=== PATIENT | female | born 1990 | race Caucasian/White ===

== ENCOUNTER → 2024-11-19 | Outpatient (CLI) | payer MEDICAID, SELFPAY ==
--- NOTE | 2024-11-19 09:30 | XR_ITS ---
Examination: Pelvic ultrasound, transabdominal, complete Technique: Transabdominal ultrasound of the pelvis performed using grayscale imaging Date and time of exam: November 19, 2024 0949 hours INDICATIONS: Irregular heavy menses 3 months FINDINGS: Uterus 8.2 cm endometrial stripe 0.5 cm No uterine mass or intrauterine gestation Right ovary 3.9 cm arterial flow small follicles Left ovary 3.6 cm arterial flow to 0.2 x 1.7 cm simple cyst IMPRESSION: No uterine mass or intrauterine gestation
--- NOTE | 2024-11-19 09:30 | XR_ITS ---
Examination: Transvaginal ultrasound of the pelvis, complete Technique: Transvaginal sonographic images pelvis performed using eagle scale imaging Exam date and time: November 19, 2024 0959 hours INDICATIONS: Irregular heavy menses 3 months FINDINGS: Uterus 7.5 cm retroverted endometrial stripe 0.8 cm No uterine mass or intrauterine gestation Right ovary 3.7 cm arterial flow small follicles Left ovary 3.6 cm arterial flow multiple follicles and simple left ovarian cyst 1.9 x 1.5 x 1.8 cm IMPRESSION: Simple left ovarian cyst 1.9 x 1.5 x 1.8 cm.
== END | disposition home or self-care (01) ==
LOC: CDIM 09:30
PROVIDERS: PCP Nurse Practitioner; Referring Provider Nurse Practitioner; Visit Provider Nurse Practitioner
DX: N83.202 Unspecified ovarian cyst, left side (principal)
CPT/HCPCS: 76830; 76856

== ENCOUNTER → 2024-11-22 | Outpatient (CLI) | payer MEDICAID, SELFPAY ==
--- NOTE | 2024-11-22 14:30 | XR_ITS ---
Examination: Breast ultrasound complete, bilateral Date and time of exam: November 22, 2024 1441 hours TECHNIQUE: Real-time eagle scale sonographic images bilateral breasts, all 4 quadrants, nipple and axillary regions INDICATIONS: Patient states bilateral breast lumps years FINDINGS: No cystic or solid mass involving either breast IMPRESSION: BI-RADS Category 1: Negative studies
--- NOTE | 2024-11-22 15:30 | XR_ITS ---
Examination: Diagnostic digital mammography, bilateral Computer aided detection 3-D breast Tomosynthesis, bilateral Date and time of exam: November 22, 2024 1500 hours INDICATIONS: Patient states bilateral breast lumps 5 years Technique: Nonmagnified MLO, CC views of the breasts to been obtained, reconstructed from 3-D Tomosynthesis images. R2 computer aided detection program utilized for evaluation of suspicious masses and/or abnormal calcifications. 3-D Tomosynthesis images obtained. Findings: The breasts are heterogeneously dense, which may obscure small masses No left breast suspicious masses Right breast MLO view focal asymmetry 9 mm projecting 4.2 cm from the nipple Impression: BI-RADS Category 3: Probably benign findings Recommend 1 additional 6 month right mammogram follow-up to document stability of focal asymmetry described above right breast MLO spot compression view.
== END | disposition home or self-care (01) ==
LOC: CDIM 14:14
PROVIDERS: PCP Nurse Practitioner; Referring Provider Nurse Practitioner; Visit Provider Nurse Practitioner
DX: R92.333 Mammographic heterogeneous density, bilateral breasts (principal); N64.89 Other specified disorders of breast
CPT/HCPCS: 76641; 77062; 77066; G0279